=== PATIENT | female | born 1990 | race Caucasian/White ===

== ENCOUNTER 2017-05-25 16:42 | Emergency (ER) | payer OTHER | END 2017-05-25 18:05 | disposition home or self-care (01) | LOC: E/R 16:42 | DX: J11.1 Influenza due to unidentified influenza virus with other respiratory manifestations (principal) | CPT/HCPCS: 99284; Z7502 ==

== ENCOUNTER 2018-02-24 12:50 | Emergency (ER) | payer SELFPAY, OTHER | END 2018-02-24 14:31 | disposition left against medical advice (07) | LOC: FTE 14:31 | DX: Z53.21 Procedure and treatment not carried out due to patient leaving prior to being seen by health care provider (principal) ==